=== PATIENT | male | born 1985 | race Caucasian/White ===

== ENCOUNTER 2016-09-26 19:31 | Emergency (ER) | payer MEDICAID ==
[2016-09-26] MEDS ORDERED: NS 1,000 ML IV ONE (20:08)
[2016-09-26] MEDS ORDERED: ONDANSETRON 4 MG/2 ML VIAL IVP ONE (20:08)
--- NOTE | 2016-09-26 20:15 | EDPHY ---
H & P Stated Complaint: general malaise/fatigue no known cause HPI/ROS: CHIEF COMPLAINT: Multiple complaints HISTORY OF PRESENT ILLNESS: Patient complains of malaise, fever, body aches, chest discomfort. This started abruptly around 6:00 p.m.. [id number] symptoms. Some subjective fever and sweating. No shortness of breath. No extremity swelling, erythema or pain. No predictable modifying factors for this. No sore throat. No neck pain or stiffness. No headache. No rashes, sores or lesions. No other associated complaints or modifying factors. REVIEW OF SYSTEMS: Ten systems reviewed and are negative unless otherwise noted in the HPI PAST MEDICAL HISTORY: Denies any medical history. Denies any medications. SOCIAL HISTORY: Smokes tobacco. Admits to daily alcohol abuse. Currently homeless living with his girlfriend in her van FAMILY HISTORY: Noncontributory EXAMINATION General Appearance: Alert, no distress, unkempt Head: normocephalic, atraumatic Eyes: Pupils equal and round, no conjunctival pallor or injection ENT, Mouth: Mucous membranes moist. Airway widely patent Neck: Normal inspection, supple, non-tender. No meningismus or rigidity. Painless range of motion all planes Respiratory: Lungs are clear to auscultation. No wheezing, rhonchi or crackles Cardiovascular: Regular rate and rhythm. No murmur. Pulses intact distally Gastrointestinal: Abdomen is soft and nontender. No distention or rigidity. Back: non-tender, no bony abnormalities Neurological: GCS 15. A&O, nonfocal, normal gait Skin: Warm and dry, no rash Extremities: Nontender, no pedal edema Psychiatric: Mood and affect normal DIFFERENTIAL DIAGNOSES: Including but not limited to dehydration, pneumonia, UTI, weakness, ACS, bronchitis, pleurisy, pericarditis, alcohol abuse MDM: 8:10 p.m. Generalized malaise, weakness and feeling ill along with some chest discomfort. Started abruptly 2 hours ago. Vital signs are within normal limits. The patient has not been eating today and is feeling nauseated. He does admit to alcohol abuse with 6 shots of clear liquor. No acute findings on examination. Laboratory studies, chest x-ray, EKG pending 8:50 p.m. Blood glucose is low at 48. He is awake and alert, mentating appropriately. I will request that we feed him by mouth as he is able to do so without complication. Recheck blood sugar an hour. I have re-evaluated the patient. I discussed this with him. We also discussed any intake of mouth today. He says he has only had some alcohol with water. He has had no food 24 hours. He denies taking any medications of his own or any friend or family medications either. He remains awake and alert. He is mentating appropriately. 10:05 p.m. I have re-evaluated the patient. He remains awake and alert, no acute distress. He has eaten a sandwich and had some juice. Tolerated this without complication. I will recheck his blood sugar. 10:28 p.m. Fingerstick blood sugar is 159. He is awake and alert, mentating appropriately. I do feel is stable for discharge home. We discussed that he needs to increase his intake by mouth throughout the day. We discussed alcohol cessation. Discharged home with instructions to continue eating regularly, follow up with [facility] and return to ER for any worsening symptoms or any chest pain. He is comfortable this plan and discharged in stable condition. SUPERVISION: Patient was evaluated in conjunction with the supervising physician. Please see their note for details. Source: Patient, Family Exam Limitations: No limitations - Personal History Current Tetanus/Diphtheria Vaccine: Unsure Tetanus Vaccine Date: unknown, probably >10 years - Medical/Surgical History Hx Asthma: No Hx Chronic Respiratory Disease: No Hx Diabetes: No Hx Cardiac Disease: No Hx Renal Disease: No Hx Cirrhosis: No Hx Alcoholism: Yes Hx HIV/AIDS: No Hx Splenectomy or Spleen Trauma: No Other PMH: PMHx: Homeless, alcohol withdrawl history. PSHx: denies - Social History Smoking Status: Heavy smoker Constitutional: Initial Vital Signs Temperature (C) 97.3 F 09/26/16 19:43 Heart Rate 72 09/26/16 19:43 Respiratory Rate 14 09/26/16 19:43 Blood Pressure 99/73 L 09/26/16 19:43 O2 Sat (%) 98 09/26/16 19:43 O2 Delivery Mode Room Air Allergies/Adverse Reactions: No Known Allergies Allergy (Verified 11/04/15 13:04) Home Medications: Medication Instructions Recorded NK [No Known Home Meds] 11/04/15 Medical Decision Making - Diagnostics Imaging Results: Imaging Impressions Chest X-Ray 09/26/16 20:09 Impression: Findings most consistent with airways disease are noted. - Data Points Laboratory Results: Laboratory Results 09/26/16 20:12 09/26/16 20:12 09/26/16 09/26/16 09/26/16 21:15 20:12 20:12 WBC 6.46 10^3/uL 10^3/uL (3.80-9.50) RBC 4.75 10^6/uL 10^6/uL (4.40-6.38) Hgb 15.2 g/dL g/dL (13.7-17.5) Hct 45.7 % % (40.0-51.0) MCV 96.2 fL fL (81.5-99.8) MCH 32.0 pg pg (27.9-34.1) MCHC 33.3 g/dL g/dL (32.4-36.7) RDW 14.7 % % (11.5-15.2) Plt Count 251 10^3/uL 10^3/uL (150-400) MPV 8.9 fL fL (8.7-11.7) Neut % (Auto) 82.1 % H % (39.3-74.2) Lymph % (Auto) 12.5 % L % (15.0-45.0) Bailey % (Auto) 4.0 % L % (4.5-13.0) Eos % (Auto) 0.6 % % (0.6-7.6) Baso % (Auto) 0.3 % % (0.3-1.7) Nucleat RBC Rel Count 0.0 % % (0.0-0.2) Absolute Neuts (auto) 5.30 10^3/uL 10^3/uL (1.70-6.50) Absolute Lymphs (auto) 0.81 10^3/uL L 10^3/uL (1.00-3.00) Absolute Monos (auto) 0.26 10^3/uL L 10^3/uL (0.30-0.80) Absolute Eos (auto) 0.04 10^3/uL 10^3/uL (0.03-0.40) Absolute Basos (auto) 0.02 10^3/uL 10^3/uL (0.02-0.10) Absolute Nucleated RBC 0.00 10^3/uL 10^3/uL (0-0.01) Immature Gran % 0.5 % % (0.0-1.1) Immature Gran # 0.03 10^3/uL 10^3/uL (0.00-0.10) Sodium 144 mEq/L mEq/L (134-144) Potassium 4.0 mEq/L mEq/L (3.5-5.2) Chloride 106 mEq/L mEq/L (97-110) Carbon Dioxide 18 mEq/l L mEq/l (22-31) Anion Gap 20 mEq/L H mEq/L (8-16) BUN 13 mg/dL mg/dL (7-23) Creatinine 1.0 mg/dL mg/dL (0.7-1.3) Estimated GFR > 60 Glucose 48 mg/dL L mg/dL (70-100) Calcium 9.3 mg/dL mg/dL (8.5-10.4) Troponin I < 0.012 ng/mL ng/mL (0-0.034) Lipase 59.0 IU/L IU/L (23-300) Urine Color YELLOW Urine Appearance CLEAR Urine pH 5.0 (5.0-7.5) Ur Specific [place] 1.025 (1.002-1.030) Urine Protein NEGATIVE (NEGATIVE) Urine Ketones 2+ H (NEGATIVE) Urine Blood NEGATIVE (NEGATIVE) Urine Nitrate NEGATIVE (NEGATIVE) Urine Bilirubin NEGATIVE (NEGATIVE) Urine Urobilinogen NEGATIVE EU EU (0.2-1.0) Ur Leukocyte Esterase NEGATIVE (NEGATIVE) Urine RBC 1-3 /hpf /hpf (0-3) Urine WBC 3-5 /hpf H /hpf (0-3) Ur Epithelial Cells TRACE /lpf /lpf (NONE-1+) Hyaline Casts 1-5 /lpf /lpf (0-1) Urine Mucus 2+ /lpf H /lpf (NONE-1+) Urine Glucose NEGATIVE (NEGATIVE) Medications Given: Discontinued Medications Sodium Chloride (Ns) 1,000 mls @ 0 mls/hr IV ONCE ONE; Wide Open PRN Reason: Protocol Stop: 09/26/16 20:09 Last Admin: 09/26/16 20:24 Dose: 1,000 mls Ondansetron HCl (Zofran) 4 mg IVP EDNOW ONE Stop: 09/26/16 20:09 Last Admin: 09/26/16 20:25 Dose: 4 mg Departure - Departure Disposition: Home, Routine, Self-Care Clinical Impression: Hypoglycemia, Weakness Condition: Good Instructions: Weakness (ED), Non-diabetic Hypoglycemia (ED), Abuse of Alcohol ( ED) Additional Instructions: 1. Follow up with primary care physician this week 2. Continue to eat on regular basis 3. Consider alcohol cessation with supervision Referrals: NONE *PRIMARY CARE P,. [Primary Care Provider] - As per Instructions [facility],. [Clinic] - As per Instructions Yocasta Mcdermott MD [Medical Doctor] - As per Instructions
--- NOTE | 2016-09-26 20:23 | CPEKG ---
Heart Rate: 63 RR Interval: 952 P-R Interval: 164 QRSD Interval: 88 QT Interval: 464 QTC Interval: 476 P Warren: 77 QRS Warren: -1 T Wave Warren: 67 EKG Severity - ABNORMAL ECG - EKG Impression: SINUS ARRHYTHMIA, RATE 50-75 EKG Impression: PROBABLE LEFT ATRIAL ABNORMALITY EKG Impression: LOW VOLTAGE IN FRONTAL LEADS EKG Impression: BORDERLINE PROLONGED QT INTERVAL Electronically Signed By: Martin Tanner 26-Sep-2016 20:25:03
[2016-09-26 20:27] LABS: % IMMATURE GRANULYOCYTES 0.5 % (0.0-1.1); ABSOLUTE IMMATURE GRANULOCYTES 0.03 10^3/uL (0.00-0.10); ADD DIFF? NO; ADD MORPH? NO; ADD SCAN? NO; ATYPICAL LYMPHOCYTE FLAG 10 (0-99); FRAGMENT RBC FLAG 0 (0-99); HEMATOCRIT 45.7 % (40.0-51.0); HEMOGLOBIN 15.2 g/dL (13.7-17.5); LEFT SHIFT FLG 0 (0-99); LIPEMIA HEMOLYSIS FLAG 80 (0-99); MEAN CELL HEMOGLOBIN CONCENTR. 33.3 g/dL (32.4-36.7); MEAN CELL VOLUME 96.2 fL (81.5-99.8); MEAN PLATELET VOLUME 8.9 fL (8.7-11.7); PLATELET CLUMPS FLAG 0 (0-99); PLATELET COUNT 251 10^3/uL (150-400); RED BLOOD CELL COUNT 4.75 10^6/uL (4.40-6.38); RED CELL DISTRIBUTION WIDTH 14.7 % (11.5-15.2)
[2016-09-26 20:51] LABS: ANION GAP 20 mEq/L (8-16); CALCIUM 9.3 mg/dL (8.5-10.4); CARBON DIOXIDE 18 mEq/l (22-31); CHLORIDE 106 mEq/L (97-110); GLOMERULAR FILTRATION RATE > 60; GLUCOSE 48 mg/dL (70-100); SODIUM 144 mEq/L (134-144)
[2016-09-26 21:01] LABS: TROPONIN I < 0.012 ng/mL (0-0.034)
[2016-09-26 21:19] VITALS: RESP 16
[2016-09-26 21:42] LABS: COLOR YELLOW; LEUKOCYTE ESTERASE,URINE NEGATIVE (NEGATIVE); NITRITE,URINE NEGATIVE (NEGATIVE)
[2016-09-26 21:49] LABS: MUCUS 2+ /lpf (NONE-1+)
[2016-09-26 22:03] VITALS: BP 105/65; PULSE 89; O2SAT 97
[2016-09-26 22:44] VITALS: TEMP 98.2
== END 2016-09-26 22:43 | disposition home or self-care (01) ==
DX: R53.1 Weakness (principal); F17.200 Nicotine dependence, unspecified, uncomplicated; E86.9 Volume depletion, unspecified; E16.2 Hypoglycemia, unspecified
CPT/HCPCS: 96374; J2405